=== PATIENT | female | born 1960 | race Caucasian/White ===

== ENCOUNTER → 2019-04-23 | Outpatient (CLI) | payer BC ==
--- NOTE | 2019-04-23 17:26 | FL ---
MODIFIED SWALLOW / DEGLUTITION STUDY DATE OF EXAM: 04/23/2019 CLINICAL HISTORY: 59-year-old female Dysphagia. Difficulty swallowing for 3 months with solid foods, sticking in the throat. Patient reports recent EGD with esophageal dilatation. TECHNIQUE: Deglutition study is performed utilizing thin liquid barium, honey and nectar thick liqui d barium, barium thick pudding, and barium coated cracker. Total fluoroscopy time: 2 minutes 26 seconds. Total images: None. Real-time fluoroscopy support was provided to speech pathology. COMPARISON: None. FINDINGS: The oral and pharyngeal phases show satisfactory initiation and propagation with all modalities teste d. Normal mastication is seen with solid modalities tested. No penetration or aspiration with any m odality tested. No significant pharyngeal residue was appreciated. AP view of the esophagus shows sa tisfactory passage into the stomach. IMPRESSION: No penetration or aspiration. Please refer to speech therapist notes for further details if necessar y.
== END | disposition home or self-care (01) ==
LOC: RADFLMAIN 10:40
PROVIDERS: ATTEND Otolaryngology
DX: R13.10 Dysphagia, unspecified (principal)
CPT/HCPCS: 74230